=== PATIENT | male | born 1990 | race Caucasian/White ===

== ENCOUNTER 2022-04-24 17:24 | Outpatient (REF) | payer MEDICAID, SELFPAY ==
[2022-04-24 20:50] LABS: Abs Immature Grans 0.01 10^3/uL (0.0-0.06); Absolute Basophil Count 0.02 10^3/uL (0.0-0.2); Absolute Eosinophil Count 0.03 10^3/uL (0.0-0.7); Absolute Lymphocyte Count 1.64 10^3/uL (1.2-3.4); Basophils % 0.4; Eosinophils % 0.6; HCT 42.9 % (40.0-50.0); HGB 14.7 g/dL (13.5-17.5); Immature Grans % 0.2; Lymphocytes % 34.9; MCH 30.5 pg (27.0-33.0); MCHC 34.3 % (32.0-36.0); MCV 89 fL (80-95); MPV 9.5 fL (8.0-11.0); Monocytes % 8.5; Neutrophils % 55.4; Platelet Count 270 10^3/uL (130-400); RBC 4.82 10^6/uL (4.36-5.78); RDW 11.9 % (11.8-14.1); RDW-SD 38.2 fL
[2022-04-24 20:52] LABS: Bilirubin Negative (Negative); Blood Negative (Negative); Clarity Cloudy (Clear); Glucose Negative (Negative); Ketones Negative (Negative); Leukocyte Esterase Negative (Negative); Nitrite Negative (Negative); Specific Gravity >= 1.030 (1.005-1.025); Urobilinogen 0.2 EU/dL (Up TO 0.2)
[2022-04-24 20:52] LABS: Anion Gap 6.9 mmol/L (3-11); BUN 13 mg/dL (7-18); CO2 27.1 mmol/L (21.0-32.0); Calcium 8.8 mg/dL (8.5-10.1); Chloride 102 mmol/L (98-107); Glucose 92 mg/dL (74-106); Sodium 136 mmol/L (136-145)
[2022-04-28 09:53] LABS: HIV-1/2 Ag & Ab Screen Negative (Negative)
== END 2022-04-24 17:25 | disposition home or self-care (01) ==
LOC: LBN 17:24
PROVIDERS: PCP Nurse Practitioner Family; Visit Provider Physician Assistant
DX: R11.0 Nausea (principal); N39.0 Urinary tract infection, site not specified; R39.89 Other symptoms and signs involving the genitourinary system; Z11.4 Encounter for screening for human immunodeficiency virus [HIV]
CPT/HCPCS: 80048; 87389; 81003; 85025

== ENCOUNTER 2022-04-24 20:14 | Outpatient (REF) | payer MEDICAID, SELFPAY | END 2022-04-24 20:15 | disposition home or self-care (01) | LOC: LBN 20:14 | PROVIDERS: PCP Nurse Practitioner Family; Visit Provider Physician Assistant ==

== ENCOUNTER 2023-10-30 15:07 | Outpatient (CLI) | payer MEDICAID, SELFPAY ==
[2023-11-02 10:55] LABS: Measles IgG Antibody Positive (See Note)
[2023-11-02 10:57] LABS: Rubella IgG Ab (UVM) Positive (See Note)
[2023-11-02 13:11] LABS: Mumps Antibody IgG Equivocal (See Note)
== END 2023-10-30 15:08 | disposition home or self-care (01) ==
LOC: LBO 15:07
PROVIDERS: PCP Nurse Practitioner Family; Visit Provider Nurse Practitioner Family
DX: Z11.59 Encounter for screening for other viral diseases (principal)
CPT/HCPCS: 36415; 86735; 86762; 86765

== ENCOUNTER → 2024-04-22 13:44 | Outpatient (CLI) | payer SELFPAY ==
--- NOTE | 2024-04-22 14:20 | DI.RAD_ITS ---
Exam(s) XR RIBS LT W PA LAT CHEST CLINICAL HISTORY painful left rib cage, pleurodynia, R07.81. COMPARISON: No exams were available for comparison TECHNIQUE:: PA and lateral views of the chest and four views of the left ribs were performed. FINDINGS: LUNGS: Clear. No pleural abnormality seen. HEART: Normal. MEDIASTINUM: Normal. BONES: No displaced rib fracture is seen. No compression fractures are seen in the thoracic spine. No bony destructive lesion is seen. OTHER FINDINGS: None. IMPRESSION: 1. Unremarkable radiographic appearance of the left ribs. 2. No acute pulmonary findings.
== END ==
PROVIDERS: PCP Nurse Practitioner Family; Visit Provider Nurse Practitioner Family
DX: R07.81 Pleurodynia (principal)
CPT/HCPCS: 71046; 71100